=== PATIENT | female | born 1940 | race Hispanic/Latino ===

== ENCOUNTER 2021-12-09 14:42 | Inpatient (IN) | payer MEDICARE ==
[~2021-12-09 14:42] MED LIST: CALCIUM CHLORIDE 1,000 MG/10 ML SYRINGE IV ONE; EPINEPHrine 1 MG/10 ML SYRINGE ONE; SODIUM BICARB 8.4% 50 MEQ/50 ML SYRINGE IV ONE
[2021-12-09] MEDS ORDERED: SODIUM CHLORIDE 0.9% 1000 ML IV SOLN IV ONE (15:44)
--- NOTE | 2021-12-09 15:52 | Emergency Department Report ---
ED General Adult HPI - General Chief complaint: Arrhythmia/Palpitations Stated complaint: HYPOXIA, HYPOTENSION Time Seen by Provider: 12/09/21 15:30 Source: patient, EMS Mode of arrival: Stretcher Limitations: Other - History of Present Illness Initial comments: The patient presents to the emergency department from [facility] with a chief complaint of altered mental status. Patient is not able to communicate due to her presentation thus she cannot add to the history. Per EMS the patient has not had regular interaction with staff for the last day or 2. He also concerned that the patient's heart rate was erratic. -: unknown Consistency: constant Improves with: none Worsens with: none Associated Symptoms: denies other symptoms Treatments Prior to Arrival: none - Related Data Allergies Allergy/AdvReac Type Severity Reaction Status Date / Time primidone [From Mysoline] AdvReac Unknown Verified 12/09/21 14:50 ED Review of Systems ROS: Stated complaint: HYPOXIA, HYPOTENSION Other details as noted in HPI Comment: Unobtainable due to pts medical conditions ED Physical Exam - General Limitations: Altered Mental Status General appearance: obtunded - Head Head exam: Present: atraumatic, normocephalic - Eye Eye exam: Present: normal appearance - ENT ENT exam: Present: mucous membranes dry - Neck Neck exam: Present: normal inspection - Respiratory Respiratory exam: Present: normal lung sounds bilaterally. Absent: respiratory distress - Cardiovascular Cardiovascular Exam: Present: normal rhythm, tachycardia, irregular rhythm, other (Irregularly irregular). Absent: systolic murmur, diastolic murmur, rubs, gallop - GI/Abdominal GI/Abdominal exam: Present: soft, normal bowel sounds. Absent: distended, tenderness - Extremities Exam Extremities exam: Present: normal inspection - Back Exam Back exam: Present: normal inspection - Neurological Exam Neurological exam: Present: altered - Psychiatric Psychiatric exam: Present: normal affect, normal mood - Skin Skin exam: Present: warm, dry, intact, normal color. Absent: rash ED Course Vital Signs 12/09/21 14:47 Pulse Rate 130 H Blood Pressure 84/40 [Left] ED Medical Decision Making - Lab Data Result diagrams: 12/09/21 16:43 12/09/21 16:43 Lab Results 12/09/21 12/09/21 12/09/21 Range/Units 16:43 16:43 16:43 WBC 9.9 (4.5-11.0) K/mm3 RBC 2.90 L (3.65-5.03) M/mm3 Hgb 6.8 L (10.1-14.3) gm/dl Hct 23.1 L (30.3-42.9) % MCV 79 (79-97) fl MCH 24 L (28-32) pg MCHC 30 (30-34) % RDW 18.2 H (13.2-15.2) % Plt Count 267 (140-440) K/mm3 Lymph % (Auto) 13.9 (13.4-35.0) % Larue % (Auto) 5.9 (0.0-7.3) % Eos % (Auto) 0.1 (0.0-4.3) % Baso % (Auto) 0.6 (0.0-1.8) % Lymph # (Auto) 1.4 (1.2-5.4) K/mm3 Larue # (Auto) 0.6 (0.0-0.8) K/mm3 Eos # (Auto) 0.0 (0.0-0.4) K/mm3 Baso # (Auto) 0.1 (0.0-0.1) K/mm3 Seg Neutrophils % 79.5 H (40.0-70.0) % Seg Neutrophils # 7.9 H (1.8-7.7) K/mm3 APTT 31.1 (24.2-36.6) Sec. Sodium 141 (137-145) mmol/L Potassium 5.1 H (3.6-5.0) mmol/L Chloride 105.4 (98-107) mmol/L Carbon Dioxide 18 L (22-30) mmol/L Anion Gap 23 mmol/L BUN 49 H (7-17) mg/dL Creatinine 1.1 (0.6-1.2) mg/dL Estimated GFR 47 ml/min BUN/Creatinine Ratio 45 % Glucose 109 H (65-100) mg/dL Lactic Acid (0.7-2.0) mmol/L Calcium 8.4 (8.4-10.2) mg/dL Total Bilirubin 0.50 (0.1-1.2) mg/dL AST 55 H (5-40) units/L ALT 37 (7-56) units/L Alkaline Phosphatase 163 H (35-129) units/L Troponin T 0.023 (0.00-0.029) ng/mL Total Protein 5.9 L (6.3-8.2) g/dL Albumin 3.3 L (3.9-5) g/dL Albumin/Globulin Ratio 1.3 % 12/09/21 Range/Units 16:43 WBC (4.5-11.0) K/mm3 RBC (3.65-5.03) M/mm3 Hgb (10.1-14.3) gm/dl Hct (30.3-42.9) % MCV (79-97) fl MCH (28-32) pg MCHC (30-34) % RDW (13.2-15.2) % Plt Count (140-440) K/mm3 Lymph % (Auto) (13.4-35.0) % Larue % (Auto) (0.0-7.3) % Eos % (Auto) (0.0-4.3) % Baso % (Auto) (0.0-1.8) % Lymph # (Auto) (1.2-5.4) K/mm3 Larue # (Auto) (0.0-0.8) K/mm3 Eos # (Auto) (0.0-0.4) K/mm3 Baso # (Auto) (0.0-0.1) K/mm3 Seg Neutrophils % (40.0-70.0) % Seg Neutrophils # (1.8-7.7) K/mm3 APTT (24.2-36.6) Sec. Sodium (137-145) mmol/L Potassium (3.6-5.0) mmol/L Chloride (98-107) mmol/L Carbon Dioxide (22-30) mmol/L Anion Gap mmol/L BUN (7-17) mg/dL Creatinine (0.6-1.2) mg/dL Estimated GFR ml/min BUN/Creatinine Ratio % Glucose (65-100) mg/dL Lactic Acid 3.40 H* (0.7-2.0) mmol/L Calcium (8.4-10.2) mg/dL Total Bilirubin (0.1-1.2) mg/dL AST (5-40) units/L ALT (7-56) units/L Alkaline Phosphatase (35-129) units/L Troponin T (0.00-0.029) ng/mL Total Protein (6.3-8.2) g/dL Albumin (3.9-5) g/dL Albumin/Globulin Ratio % - EKG Data -: EKG Interpreted by Me - EKG Data Interpretation: other (Irregularly irregular with a rate of 140 bpm) - Radiology Data Radiology results: report reviewed - Medical Decision Making Patient was given 2 boluses of IV Cardizem to no avail Cardizem drip initiated IV fluids given IV antibiotics given Critical Care Time: Yes Critical care time in (mins) excluding proc time.: 35 Critical care attestation.: If time is entered above; I have spent that time in minutes in the direct care of this critically ill patient, excluding procedure time. ED Disposition Clinical Impression: Altered mental status, Afib, Pneumonia Disposition: 09 ADMITTED INPATIENT Is pt being admited?: Yes Does the pt Need Aspirin: No Condition: Critical Instructions: Bacterial Pneumonia (ED) Referrals: PRIMARY CARE, [Primary Care Provider] - 3-5 Days
[2021-12-09] MEDS ORDERED: dilTIAZem 50 MG/10 ML INJ IV ONE (16:00)
--- NOTE | 2021-12-09 16:15 | XRay Report ---
CHEST 1 VIEW 12/09/2021 3:55 PM INDICATION / CLINICAL INFORMATION: Arrhythmia. COMPARISON: None available. FINDINGS: Increased interstitial prominence with bilateral pulmonary opacities right greater than lef t. Increased congestive change with left pleural effusion. Heart is mildly enlarged. Signer Name: Yariel Chavis MD Signed: 12/09/2021 4:11 PM Workstation Name: [email or web address]
--- NOTE | 2021-12-09 16:24 | Cat Scan Report ---
CT BRAIN: 12/09/2021 INDICATION / CLINICAL INFORMATION: AMS. COMPARISON: None available. FINDINGS: BRAIN/INTRACRANIAL STRUCTURES: Unenhanced CT images of the brain demonstrate no evidence of acute abn ormality. Ventricles and sulci are prominent in size, consistent with pronounced diffuse cerebral atrophy. There is no evidence of acute ischemic injury, hemorrhage, or mass. There are no abnormal extra-axial fluid collections. EXTRACRANIAL STRUCTURES: Unremarkable. IMPRESSION: No acute abnormality All CT scans at this location are performed using dose reduction to ALARA by means of automated expos ure control. Signer Name: Ramon Ospina MD Signed: 12/09/2021 4:20 PM Workstation Name: [id number] [id number]
[2021-12-09 16:59] LABS: Basophils # (Auto) 0.1 K/mm3 (0.0-0.1); Basophils % (Auto) 0.6 % (0.0-1.8); Eosinophils % (Auto) 0.1 % (0.0-4.3); Hematocrit 23.1 % (30.3-42.9); Hemoglobin 6.8 gm/dl (10.1-14.3); Lymphocytes # (Auto) 1.4 K/mm3 (1.2-5.4); Lymphocytes % (Auto) 13.9 % (13.4-35.0); Mean Corpuscular HGB Conc 30 % (30-34); Mean Corpuscular Volume 79 fl (79-97); Monocytes # (Auto) 0.6 K/mm3 (0.0-0.8); Monocytes % (Auto) 5.9 % (0.0-7.3); Platelet Count 267 K/mm3 (140-440); Red Cell Distribution Width 18.2 % (13.2-15.2)
[2021-12-09] MEDS ORDERED: dilTIAZem/NaCl 125 MG/125 ML BAG IV SCH (17:00)
[2021-12-09] MEDS ORDERED: SODIUM CHLORIDE 0.9% 1000 ML 1,000 ML IV ONE (17:37)
[2021-12-09 17:41] LABS: Albumin 3.3 g/dL (3.9-5); Calcium 8.4 mg/dL (8.4-10.2)
--- NOTE | 2021-12-09 18:09 | Procedure Note ---
Date of procedure: 12/09/21 Pre-op diagnosis: Sepsis Post-op diagnosis: same Procedure: Right internal jugular vein triple-lumen catheter placement After informed consent was obtained a timeout was taken with the patient's nurse at bedside to verify the correct patient, correct procedure, and the correct operative site. Local anesthesia obtained with 1% lidocaine. Ultrasound was used to localize the right internal jugular vein without difficulty. The Seldinger technique was utilized to access the right internal jugular vein with a seeker needle under ultrasound guidance. A guidewire was then advanced via the seeker needle into the right internal jugular vein without difficulty. The seeker needle was subsequently removed. A scalpel was used to incise the skin at the insertion site. A dilator was then passed over the guidewire into the right internal jugular vein and subsequently removed. A preflush triple-lumen catheter was then advanced over the guidewire into the right internal jugular vein and the guidewire subsequently removed. All 3 ports flush and drawl with ease. Estimated blood loss minimal. Complications none. Specimens none. Postoperative chest x-ray reveals triple-lumen catheter in expected position without evidence of pneumothorax. Anesthesia: local Surgeon: AMEYA FORRESTER Estimated blood loss: minimal Pathology: none Condition: critical Disposition: ICU
--- NOTE | 2021-12-09 18:09 | History and Physical Report ---
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 Patient is confused with diminished cognition is unable to provide history. Patient history provided by EMS staff, ED staff, as well as custodial facility staff. As per staff the patient was found to have increased confusion today with a systolic blood pressure in the 80s. EMS was notified and upon arrival the patient was found to be in distress and subsequent transported to [facility] for further care and evaluation of the aforementioned symptoms. The patient was seen and evaluated emergency department. All lab and imaging studies reviewed. Patient found to have a systolic blood pressure in the 80s. Chest x-ray revealed pneumonia complicated by sepsis. Patient also found to have volume depletion as well as atrial fibrillation with rapid ventricular response. Patient admitted to ICU for medical stabilization. Patient initiated on sepsis protocol in the emergency department as well as Ca rdizem drip. Critical care team consulted in ED. Patient is confused with diminished cognition at time of evaluation but has a positive gag reflex and is able to protect her airway without difficulty. No prior admission for review. No medication listed at time of admission for reconciliation. Advanced care planning conducted in ED. Past History Past Medical History: other (See HPI) Past Surgical History: No surgical history, Other (Reviewed) Social history: . denies: smoking, alcohol abuse, prescription drug abuse Family history: hypertension Medications and Allergies Allergies Allergy/AdvReac Type Severity Reaction Status Date / Time primidone [From Mysoline] AdvReac Unknown Verified 12/09/21 14:50 Active Meds: Active Medications dilTIAZem/NaCl (Diltiazem/Nacl 125mg/125ml) 125 mg in 125 mls @ 5 mls/hr IV TITRATE GEOVANNA; Protocol Sodium Chloride (Nacl 0.9% 1000 Ml) 1,000 mls @ 999 mls/hr IV BOLUS ONE Stop: 12/09/21 18:37 Review of Systems ROS unobtainable: due to mental status Exam - Constitutional Vitals: Temp Pulse Resp BP Pulse Ox 130 H 84/40 12/09/21 14:47 12/09/21 14:47 General appearance: Present: mild distress - EENT Eyes: Present: PERRL ENT: hearing intact, clear oral mucosa, hearing decreased - Neck Neck: Present: supple - Respiratory Respiratory: bilateral: diminished, rhonchi - Cardiovascular Rhythm: other (Bradycardia) - Extremities Extremities: pulses symmetrical, No edema Peripheral Pulses: abnormal (Capillary refill greater than 3.5 seconds) - Abdominal General gastrointestinal: Present: soft, non-tender, non-distended - Integumentary Integumentary: Present: clear, dry, clammy, decreased turgor - Musculoskeletal Musculoskeletal: generalized weakness - Psychiatric Psychiatric: no appropriate mood/affect, no intact judgment & insight, no memory intact - Neurologic Neurologic: CNII-XII intact, no focal deficits, moves all extremities, no gait normal HEART Score - HEART Score Troponin: Troponin T 0.023 ng/mL (0.00-0.029) 12/09/21 16:43 Results - Labs CBC & Chem 7: 12/09/21 16:43 12/09/21 16:43 Labs: Abnormal lab results 12/09/21 12/09/21 12/09/21 Range/Units 16:43 16:43 16:43 RBC 2.90 L (3.65-5.03) M/mm3 Hgb 6.8 L (10.1-14.3) gm/dl Hct 23.1 L (30.3-42.9) % MCH 24 L (28-32) pg RDW 18.2 H (13.2-15.2) % Seg Neutrophils % 79.5 H (40.0-70.0) % Seg Neutrophils # 7.9 H (1.8-7.7) K/mm3 Potassium 5.1 H (3.6-5.0) mmol/L Carbon Dioxide 18 L (22-30) mmol/L BUN 49 H (7-17) mg/dL Glucose 109 H (65-100) mg/dL Lactic Acid 3.40 H* (0.7-2.0) mmol/L AST 55 H (5-40) units/L Alkaline Phosphatase 163 H (35-129) units/L Total Protein 5.9 L (6.3-8.2) g/dL Albumin 3.3 L (3.9-5) g/dL Assessment and Plan - Patient Problems (1) Sepsis Current Visit: Yes Status: Acute Plan to address problem: Sepsis protocol: CBC, CMP, blood culture, IV fluid resuscitation therapy, IV antibiotic therapy, monitor urine output every shift, monitor fluid balance, maintain mean arterial pressure greater than or equal to 65, serial lactic acid level. The high probability of a clinically significant, sudden or life threatening det erioration of the [pulmonary, renal, neuro, infectious disease] system(s) required my full and direct attention, intervention and personal management. The aggregate critical care time was [90] minutes. This time is in addition to time spent performing reported procedures but includes the following: [x] Data Review and interpretation [x] Patient assessment and monitoring of vital signs [x] Documentation [x] Medication orders and management (2) Pneumonia Current Visit: Yes Status: Acute Plan to address problem: Pneumonia protocol: Chest x-ray, CBC, supplemental oxygen, pulse oximetry, nebulizer therapy, IV antibiotic therapy. (3) Atrial fibrillation with RVR Current Visit: Yes Status: Acute Plan to address problem: Cardiology team consulted. Cardizem drip, for rate control. Supportive care. Further care and evaluation as per cardiology team. (4) Volume depletion Current Visit: Yes Status: Acute Plan to address problem: IV for resuscitation therapy, monitor fluid balance. Repeat BMP in AM. (5) Malnutrition Current Visit: Yes Status: Acute Qualifiers: Protein-calorie malnutrition severity: severe Plan to address problem: Increase protein intake when awake and alert only, dietary supplementation. (6) Metabolic acidosis Current Visit: Yes Status: Acute Plan to address problem: IV fluid resuscitation therapy, IV bicarbonate therapy, BMP, repeat BMP in a.m. (7) Toxic metabolic encephalopathy Current Visit: Yes Status: Acute Plan to address problem: CT scan head, treat sepsis, neuro check, seizure precaution. (8) DVT prophylaxis Current Visit: Yes Status: Acute Plan to address problem: SCD to bilateral lower extremities while in bed (9) Advance care planning Current Visit: Yes Status: Acute Plan to address problem: Disease education conducted, care plan discussed, diagnoses discussed, prognosis discussed, +30 minutes. (10) Preventative health care Current Visit: Yes Status: Acute Plan to address problem: Patient to follow-up with primary care physician for all age and risk factor appropriate screening test. Increase protein intake at discharge. +30 minutes.
[2021-12-09] MEDS ORDERED: PIPERACIL/TAZOBACTA 4.5/NS 100 4.5 GM/100 ML VIAL IV ONE (18:22)
[2021-12-09] MEDS ORDERED: oxyCODONE /ACETAMINOPHEN 5-325MG TAB PO PRN (18:39)
[2021-12-09] MEDS ORDERED: HYDROmorphone 0.5 MG/0.5 ML INJ IV PRN ×2 (18:39)
[2021-12-09] MEDS ORDERED: ACETAMINOPHEN 325 MG TAB PO PRN ×2 (18:39)
--- NOTE | 2021-12-09 19:17 | XRay Report ---
CHEST 1 VIEW 12/09/2021 6:56 PM INDICATION / CLINICAL INFORMATION: central line. COMPARISON: 12/09/2021 FINDINGS: SUPPORT DEVICES: Right IJ central venous catheter with the tip at the lower SVC. HEART / MEDIASTINUM: Stable. LUNGS / PLEURA: Redemonstrated bibasilar opacities. No pneumothorax. ADDITIONAL FINDINGS: No significant additional findings. IMPRESSION: 1. Central line in expected position. Otherwise no significant change Signer Name: Hair Villaseñor DO Signed: 12/09/2021 7:13 PM Workstation Name: [id number]
[2021-12-09] MEDS ORDERED: SODIUM BICARB 8.4% 50 MEQ/50 ML SYRINGE IV SCH (19:47)
[2021-12-09] MEDS ORDERED: cefTRIAXone/NS 2 GM/100 ML 2 GM/100 ML BAG IV SCH (20:00)
[2021-12-09] MEDS ORDERED: AZITHROMYCIN/NS 500 MG/250 ML 500 MG/250 ML BAG IV SCH (20:30)
[2021-12-09] MEDS ORDERED: SODIUM CHLORIDE 0.9% 250ML 250 ML IV ONE (21:37)
[2021-12-09] MEDS ORDERED: NORepinephrine/NS 8 MG-250 ML 8 MG/250 ML INFUS..BTL IV ONE (22:35)
[2021-12-09] MEDS ORDERED: NORepinephrine/NS 8 MG-250 ML 8 MG/250 ML INFUS..BTL IV SCH (22:50)
[2021-12-09 23:28] VITALS: BP 51/30
--- NOTE | 2021-12-10 00:28 | Event Note ---
Date: 12/09/21 GUALBERTO PETE called on 81-year-old white female who had earlier been admitted to the hospitalist service earlier today for pneumonia, A. fib with RVR. She had been admitted from the [facility]. Patient still in the emergency room. Resuscitative measures were commenced according to ACLS protocol. Patient was successfully intubated by the ER physician. Patient had ROSC for a brief period of time and was commenced on pressors. However, patient lost a pulse again and further resuscitative measures proved futile. Patient was pronounced on December 09, 2021 at 20 3:03 PM. Attempts will be made to contact family members.
--- NOTE | 2021-12-11 13:16 | Electrocardiograph Report ---
[facility] Test Date: 2021-12-09 Test Time: 15:06:58 Pat Name: RIA JONES Department: Room: [place] [address] Gender: F Supervisor Webbing: OLGA : 1940 Requested By: BASIM MEDINA Order Number: [id number] Reading MD: Atilio Reed Measurements Intervals [place] Rate: 140 P: TN: QRS: 38 QRSD: 76 T: -58 QT: QTc: 0 Interpretive Statements Atrial fibrillation with rapid V-rate Low voltage, extremity and precordial leads Nonspecific ST and T wave change No previous ECG available for comparison Electronically Signed On 12-11-2021 13:16:22 EDT by Atilio Reed
== END 2021-12-09 23:03 | DRG 871 ==
LOC: ED 14:42 → CC1 18:39 → UNDODISIN 12-10 04:01
PROVIDERS: ADMIT Internal Medicine; ATTEND Internal Medicine
PROC: 02HV33Z Insertion of Infusion Device into Superior Vena Cava, Percutaneous Approach (ICD-10-PCS; principal; 2021-12-09)
PROC: B548ZZA Ultrasonography of Superior Vena Cava, Guidance (ICD-10-PCS; 2021-12-09)
DX: A41.9 Sepsis, unspecified organism (principal); E43 Unspecified severe protein-calorie malnutrition; G92.8 Other toxic encephalopathy; J18.9 Pneumonia, unspecified organism; Z68.1 Body mass index [BMI] 19.9 or less, adult; I48.91 Unspecified atrial fibrillation; F01.50 Vascular dementia, unspecified severity, without behavioral disturbance, psychotic disturbance, mood disturbance, and anxiety; I67.2 Cerebral atherosclerosis; R53.81 Other malaise; Z88.8 Allergy status to other drugs, medicaments and biological substances; Z82.49 Family history of ischemic heart disease and other diseases of the circulatory system
CPT/HCPCS: 36415; 70450; 71045; 80053; 82140; 84484; 85025; 85730; 87040; 93005; 96374; 99291; G0378; J2354; J3490; J0171; J0456; J0696; J2543; J7030; J7050